=== PATIENT | female | born 1950 | race Caucasian/White ===

== ENCOUNTER 2020-07-09 16:08 | Outpatient (CLI) | payer MEDICARE ==
--- NOTE | 2020-07-09 17:01 | RAD ---
LEFT HIP TWO VIEWS: History: Hip pain. FINDINGS: Femoral head contour is normal. Joint space is normal. Minimal degenerative change. No fracture or ac larissa abnormality. IMPRESSION: Unremarkable left hip. POS: AGW
--- NOTE | 2020-07-09 17:04 | RAD ---
LUMBAR SPINE FOUR VIEWS: History: Back pain FINDINGS: Lumbar vertebrae maintain normal height. Loss of disc space at levels below L2. The L1-2 disc space i s preserved. Rudimentary ribs will be noted as L1. This results in a transitional vertebrae at L5. Th ere is anonymous articulation on the left at L5-S1. Slight anterolisthesis at the L2-3 level. Facet hypertrophy. Mild spurring. IMPRESSION: There is a transitional vertebrae. Moderate articulation on the left at L5-S1. Degenerative disc jimenez ges as described above. POS: AGW
== END 2020-07-09 16:09 | disposition home or self-care (01) ==
LOC: SCSRAD 16:08
PROVIDERS: ATTEND Family Medicine
DX: M51.16 Intervertebral disc disorders with radiculopathy, lumbar region (principal); M25.552 Pain in left hip
CPT/HCPCS: 72100

== ENCOUNTER 2022-06-16 14:47 | Outpatient (CLI) | payer MEDICARE | END 2022-06-16 14:48 | disposition home or self-care (01) | LOC: SCSMRI 14:47 | PROVIDERS: ATTEND Nurse Practitioner Family | DX: M12.812 Other specific arthropathies, not elsewhere classified, left shoulder (principal); M75.112 Incomplete rotator cuff tear or rupture of left shoulder, not specified as traumatic; S43.432A Superior glenoid labrum lesion of left shoulder, initial encounter; S46.212A Strain of muscle, fascia and tendon of other parts of biceps, left arm, initial encounter ==